=== PATIENT | female | born 1975 | race Hispanic/Latino ===

== ENCOUNTER 2018-03-09 12:54 | Emergency (ER) | payer MEDICARE ==
[2018-03-09] MEDS ORDERED: HYDROCODONE/ACETAMINOPHEN 10/325 MG TAB ONE (13:58)
[2018-03-09 14:03] LABS: EOSINOPHILS % (AUTO) 0.9 % (0.0-8.0); HEMATOCRIT 42.6 % (36-48); MEAN CORPUSCULAR HEMOGLOBIN 34.5 pg (27.0-33.0); MEAN CORPUSCULAR HGB CONC 34.5 g/dL (32.0-36.0); NEUTROPHILS % (AUTO) 64.1 % (40.0-77.0); PLATELET COUNT (AUTO) 240 K/uL (130-400); RED BLOOD CELL COUNT(AUTO) 4.26 MIL/uL (4.00-5.50); RED CELL DISTRIBUTION WIDTH 14.3 % (11.0-15.5)
[2018-03-09 14:07] LABS: CREATININE 1.2 mg/dL (0.5-1.5); POTASSIUM 4.6 mmol/L (3.5-5.1)
[2018-03-09 14:11] LABS: ALBUMIN 3.6 g/dL (3.5-5.0); BILIRUBIN,TOTAL 0.3 mg/dL (0.2-1.0); TOTAL PROTEIN, SERUM 7.9 g/dL (6.0-8.3)
[2018-03-09 14:57] LABS: HCG,QUAL RESULT NEGATIVE (NEGATIVE)
[2018-03-09 14:58] LABS: APPEARANCE,URINE Clear (CLEAR); BILIRUBIN,URINE Negative (NEGATIVE); COLOR,URINE Yellow (YELLOW); GLUCOSE, URINE (UA) Negative (NEGATIVE); KETONES,URINE Negative (NEGATIVE); LEUKOCYTE ESTERASE ,URINE Negative (NEGATIVE); NITRATE,URINE Negative (NEGATIVE); OCCULT BLOOD,URINE Negative (NEGATIVE); PROTEIN,URINE Negative (NEGATIVE); UROBILINOGEN,URINE 0.2 mg/dL (0.2-1.0)
[2018-03-09] MEDS ORDERED: LIDOCAINE HCL 2% VISCOUS 15 ML UDCUP ONE (15:51)
[2018-03-09] MEDS ORDERED: MAG HYDROX/AL HYDROX/SIMETH ES 30 ML SUSP UDCUP ONE (15:52)
== END 2018-03-09 16:56 | disposition home or self-care (01) ==
LOC: EDH 12:54
DX: R10.12 Left upper quadrant pain (principal); E78.5 Hyperlipidemia, unspecified; E11.9 Type 2 diabetes mellitus without complications; E07.9 Disorder of thyroid, unspecified; Q90.9 Down syndrome, unspecified
CPT/HCPCS: 36415; 74177; 80053; 81003; 81025; 83690; 85025; 93005

== ENCOUNTER 2023-06-22 08:54 | Day surgery (SDC) | payer MEDICARE ==
[~2023-06-22] VITALS: Ht 142.2 cm; Wt 73.5 kg
[2023-06-22] VITALS (16 sets, daily range): BP systolic 106–128; BP diastolic 45–78; PULSE 62–74; RESP 14–17
[~2023-06-22 08:54] MED LIST: ASPI-1197 PO; CYAN-106 PO; DIVA500T2 PO; EMPA25TA PO; FOLIC ACID PO; INSU300I SQ; IOHEXOL-350 50ML VIAL IV ONE; LEVO100C4 PO; LEVO125C4 PO; METF-444 PO; PREN1TAB80 PO; QUET200T5 PO; ROSU5TAB PO; SERT25TA PO
[2023-06-22] MEDS ORDERED: INDOMETHACIN 100 MG SUPP.RECT RC ONE (09:00)
[2023-06-22] MEDS: 0.9%NACL 1000ML 1,000 ML IV ONE (11:30)
[2023-06-22] MEDS ORDERED: PROPOFOL 10 MG/ML 20ML VIAL IV ONE (14:12)
[2023-06-22] MEDS ORDERED: NEOSTIGMINE METHYLSULFATE 1MG/ML IV ONE (14:13)
[2023-06-22] MEDS ORDERED: SUCCINYLCHOLINE CHLORIDE 20 MG/ML 10 ML VIAL ONE (14:13)
[2023-06-22] MEDS ORDERED: GLYCOPYRROLATE 0.2 MG/ML 5 ML VIAL ONE (14:13)
[2023-06-22] MEDS ORDERED: ROCURONIUM BROMIDE 10MG/1ML 5ML VL ONE (14:14)
[2023-06-22] MEDS ORDERED: FENTANYL CITRATE PF 50 MCG/1 ML 2ML VIAL ONE (14:14)
[2023-06-22] MEDS ORDERED: LIDOCAINE PF 100MG/5ML (2%) SYRINGE 5ML ONE (14:14)
[2023-06-22] MEDS ORDERED: EPHEDRINE SULFATE 50 MG/ML AMPULE ONE (14:44)
[2023-06-22] MEDS: DEXTROSE 50%-WATER 50 ML DISP.SYRIN IV ONE (15:55)
== END 2023-06-22 16:39 | disposition home or self-care (01) ==
LOC: DAH 08:54
PROVIDERS: ATTEND Internal Medicine Gastroenterology
DX: Z46.59 Encounter for fitting and adjustment of other gastrointestinal appliance and device (principal); K80.50 Calculus of bile duct without cholangitis or cholecystitis without obstruction; E03.9 Hypothyroidism, unspecified; E11.9 Type 2 diabetes mellitus without complications; F41.9 Anxiety disorder, unspecified; Z79.899 Other long term (current) drug therapy; Z79.01 Long term (current) use of anticoagulants; Z79.84 Long term (current) use of oral hypoglycemic drugs; Z79.890 Hormone replacement therapy
CPT/HCPCS: 81025; 43275; 84703; 82948 ×3; 36415; 74328; J3010; J0330; J7030; J7070; J3490 ×3; J2001; J2704; J2710; Q9967; C1769; 74330

== ENCOUNTER 2023-07-21 06:15 | Day surgery (SDC) | payer MEDICARE ==
[2023-07-21] VITALS (11 sets, daily range): BP systolic 95–123; BP diastolic 47–64; PULSE 57–66; RESP 12–19
[~2023-07-21 06:15] MED LIST changes: -IOHEXOL-350 50ML VIAL IV ONE
[2023-07-21] MEDS: 0.9%NACL 1000ML 1,000 ML IV ONE (07:00)
[2023-07-21] MEDS: DEXTROSE 50%-WATER 50 ML DISP.SYRIN IV ONE (07:18)
[2023-07-21] MEDS ORDERED: PROPOFOL 10 MG/ML 20ML VIAL IV ONE (08:13)
== END 2023-07-21 09:30 | disposition home or self-care (01) ==
LOC: ENDO 06:15 → DAH 06:15 → ENDO 09:30
PROVIDERS: ATTEND Internal Medicine Gastroenterology
DX: R93.5 Abnormal findings on diagnostic imaging of other abdominal regions, including retroperitoneum (principal); K80.50 Calculus of bile duct without cholangitis or cholecystitis without obstruction; F41.9 Anxiety disorder, unspecified; E78.5 Hyperlipidemia, unspecified; E11.9 Type 2 diabetes mellitus without complications
CPT/HCPCS: 43259; 81025; 82948; A4606; J2704; J7030; J7070; A4215; A4221; A4222; A4223; A4620; A4663; A7002; J3490

== ENCOUNTER 2023-08-10 08:10 | Day surgery (SDC) | payer MEDICARE ==
[2023-08-09] MEDS: INDOMETHACIN 100 MG SUPP.RECT RC ONE (12:00)
[2023-08-10] VITALS (14 sets, daily range): BP systolic 119–132; BP diastolic 64–80; PULSE 61–71; RESP 12–16
[~2023-08-10] VITALS: Ht 147.3 cm; Wt 61.7 kg
[~2023-08-10 08:10] MED LIST changes: +0.9%NACL 1000ML 0 ML IV ONE; +LACTATED RINGERS 1000ML 1,000 ML IV ONE
[2023-08-10] MEDS ORDERED: IOHEXOL-350 50ML VIAL IV ONE (10:51)
[2023-08-10] MEDS ORDERED: PROPOFOL 10 MG/ML 20ML VIAL IV ONE (11:48)
[2023-08-10] MEDS ORDERED: FENTANYL CITRATE PF 50 MCG/1 ML 2ML VIAL ONE (11:48)
[2023-08-10] MEDS ORDERED: ROCURONIUM BROMIDE 10MG/1ML 5ML VL ONE (11:49)
[2023-08-10] MEDS ORDERED: SUGAMMADEX SODIUM 200 MG/2 ML VIAL IV ONE (12:24)
[2023-08-11] MEDS ORDERED: QUET100T PO (18:59)
[2023-08-11] MEDS ORDERED: PREN-155 PO (18:59)
[2023-08-11] MEDS ORDERED: INSU300I SQ (18:59)
[2023-08-11] MEDS ORDERED: SEMA2PEN SQ (18:59)
== END 2023-08-10 13:43 | disposition home or self-care (01) ==
LOC: DAH 08:10
PROVIDERS: ATTEND Internal Medicine Gastroenterology
DX: K80.50 Calculus of bile duct without cholangitis or cholecystitis without obstruction (principal); E78.5 Hyperlipidemia, unspecified; F41.9 Anxiety disorder, unspecified; E11.9 Type 2 diabetes mellitus without complications; D64.9 Anemia, unspecified; E66.01 Morbid (severe) obesity due to excess calories; Z68.28 Body mass index [BMI] 28.0-28.9, adult; Z79.82 Long term (current) use of aspirin; Z79.4 Long term (current) use of insulin; Z79.84 Long term (current) use of oral hypoglycemic drugs; Z79.899 Other long term (current) drug therapy
CPT/HCPCS: 43262; 43264; 74328; J7120; J3010; J3490; J2704; Q9967; A4215 ×2; A4657 ×2; A7002 ×2; A4222 ×2; C1769; C1773; A4620 ×2; A4223 ×2; 36415; 74330; 82948; 84703; J7030